=== PATIENT | female | born 1970 | race Caucasian/White ===

== ENCOUNTER 2017-03-26 18:08 | Observation (INO) ==
--- NOTE | 2017-03-26 18:22 | Emergency Department Note ---
Disposition Clinical Impression: Chest pain Qualifiers: Chest pain type: unspecified Qualified Code(s): R07.9 - Chest pain, unspecified Disposition: Admitted As Inpatient Condition: Good Referrals: Saran Sims MD [Primary Care Provider] - Forms: ED Satisfaction Letter Time of Disposition: 19:57 Chest Pain HPI - General Chief Complaint: ED Chest Pain Stated Complaint: CP Time Seen by Provider: 03/26/17 18:18 Source: patient Mode of arrival: ambulatory Limitations: no limitations Vital Signs Reviewed: Yes Nursing Notes Reviewed: Yes - History of Present Illness HPI Narrative: 46-year-old female who comes in complaining of a 2 to three-day history of chest pain she describes it as pressure-like pain in her chest she has radiation to her neck and shoulders. Patient has no history of heart disease no recent cardiac workup. Patient's had an ulcer before however she says this feels differently. Pt complaint: chest pain Onset (ago): day(s) Duration: intermittent (4) Onset: during rest Pain Location: substernal, left chest Severity: moderate Severity scale (1-10): 8 Quality: heaviness Pain Radiation: RUE, LUE, neck Improves with: nothing Worsens with: nothing Treatments prior to arrival chest pain: none - Related Data Previous Rx's Medication Instructions Recorded Ondansetron ODT [Zofran ODT] 4 mg SL Q4HR #10 tab.rapdis 01/26/15 Cyclobenzaprine [Flexeril] 10 mg PO HS #10 tablet 09/17/15 HYDROcodone/Acet 5/325 mg [[place] 1 tab PO Q6H PRN #10 tab 09/17/15 5-325 mg] Dicyclomine [Bentyl] 10 mg PO TID #30 capsule 08/18/16 Allergies Allergy/AdvReac Type Severity Reaction Status Date / Time ibuprofen Allergy Swelling Verified 10/10/14 16:49 of Lip/Tongue/Throat All systems ED: reviewed and negative except as stated. Constitutional: Denies: fever, chills, weakness, weight change Eyes: Denies: eye pain, eye discharge, vision change ENT ED: Denies: ear pain, throat pain, dental pain, hearing loss, epistaxis, congestion, dysphagia Cardiovascular: Reports: chest pain. Denies: palpitations, dyspnea on exertion , edema, syncope Respiratory: Denies: cough, dyspnea, wheezes, hemoptysis, stridor Gastrointestinal: Denies: abdominal pain, nausea, vomiting, diarrhea, constipation, hematemesis, melena, hematochezia Genitourinary: Denies: dysuria, frequency, hematuria, discharge Musculoskeletal: Denies: back pain, neck pain, arthralgia, myalgia Integumentary: Denies: rash, abrasion, lesions Neurological: Denies: headache, weakness, numbness, paresthesias, confusion, abnormal gait, vertigo Psychiatric: Denies: anxiety, depression, suicidal thoughts, homicidal thoughts , auditory hallucinations, visual hallucinations Endocrine: Denies: fatigue Hematological/Lymphatic: Denies: easy bleeding, easy bruising Allergic/Immunologic: Denies: facial swelling, urticaria Chest Pain PMH - Past Medical History Medical history: Reports: no medical history Reports: Peptic Ulcer Disease, Other (Anxiety) Surgical history: Reports: appendectomy Psychiatric history: Reports: anxiety [employer] history: Reports: no [employer]OR history - Social History Smoking Status: Never smoker Alcohol use: Reports: none Drug use: Reports: none Physical Exam - General Limitations: no limitations General appearance: alert, anxious - Head Head exam: atraumatic, normocephalic, normal inspection - Eye Eye exam: Present: normal appearance, PERRL, EOMI - ENT ENT exam: normal exam, normal oropharynx, mucous membranes moist - Neck Neck exam: Present: normal inspection, full ROM, trachea midline - Chest Chest inspection: Present: normal inspection, symmetric chest wall rise - Respiratory Respiratory exam: Present: normal lung sounds bilaterally - Cardiovascular Cardiovascular exam: Present: regular rate, normal rhythm, normal heart sounds - Abdominal Exam Abdominal exam: Present: soft, Non-Tender. Absent: tenderness, distention, guarding, rebound, rigidity - Extremities Exam Extremities exam: Present: normal inspection, full ROM. Absent: tenderness, pedal edema - Expanded Lower Extremity Exam Neurovascular/Tendon exam: Absent: motor deficit, sensory deficit, tendon deficit Gait: observed and normal - Back Exam Back exam: Present: normal inspection, full ROM. Absent: tenderness - Neurological Exam Neurological exam: Present: alert - Psychiatric Psychiatric exam: Present: normal affect, normal mood - Skin Skin exam: Present: warm, dry, intact, normal color Course - Reevaluation(s) Reevaluation #1: 46-year-old female with a couple risk factors comes in complaining of chest pain and pressure. Workup here in the emergency department is negative patient will be admitted to rule out. Time: 19:56 - Consultations Consultation #1: Discussed with , admit. Time: 20:24 Vital Signs Temperature 98.4 F 03/26/17 18:12 Pulse Rate 79 03/26/17 18:12 Respiratory Rate 20 03/26/17 18:12 Blood Pressure 153/93 03/26/17 18:12 O2 Sat by Pulse Oximetry 100 03/26/17 18:12 Temperature 98.4 F 03/26/17 18:12 Pulse Rate 89 03/26/17 20:14 Respiratory Rate 16 03/26/17 20:14 Blood Pressure 135/86 03/26/17 20:14 O2 Sat by Pulse Oximetry 97 03/26/17 20:14 Oxygen Delivery Oxygen Delivery Room Air Chest Pain - Lab Data Result diagrams: 03/26/17 19:18 03/26/17 19:18 Lab Results 03/26/17 03/26/17 03/26/17 Range/Units 19:18 19:18 19:18 WBC 8.2 (4.3-11.1) K/mcL RBC 4.83 (3.82-4.97) M/mcL Hgb 14.4 (11.5-15.4) g/dL Hct 42.6 (35.3-44.9) % MCV 88.2 (83.0-100.0) fL MCH 29.8 (28.0-33.3) pg MCHC 33.8 (31.6-35.5) g/dL RDW 11.9 (11.5-14.5) % Plt Count 320 (140-400) K/mcL MPV 10.3 (9.4-12.4) fL Immature Gran % 0.4 (0-4) % Seg Neutrophils % 61.9 % Lymphocytes % 28.2 % Monocytes % 6.7 % Eosinophils % 2.2 % Basophils % 0.6 % Neutrophils # 5.1 (1.6-8.9) K/mcL Lymphocytes # 2.3 (0.6-4.6) K/mcL Monocytes # 0.6 (0.0-1.3) K/mcL Eosinophils # 0.2 (0.0-0.6) K/mcL Basophils # 0.1 (0.0-0.2) K/mcL PT 10.9 (9.4-12.1) Seconds INR 1.0 APTT 30.7 (26.0-36.0) Seconds Sodium 137 (136-145) mEq/L Potassium 3.9 (3.5-5.1) mEq/L Chloride 105 (98-107) mEq/L Carbon Dioxide 26 (23-29) mEq/L BUN 15 (6-20) mg/dL Creatinine 0.78 (0.60-1.20) mg/dL Est GFR ( Amer) > 60 (> 60) Est GFR (Non-Af Amer) > 60 (> 60) BUN/Creatinine Ratio 19 (6-26) Glucose 92 (70-105) mg/dL Calculated Osmolality 284 (280-300) Calcium 9.4 (8.6-10.3) mg/dL Troponin I (< 0.04) ng/mL 03/26/17 Range/Units 19:18 WBC (4.3-11.1) K/mcL RBC (3.82-4.97) M/mcL Hgb (11.5-15.4) g/dL Hct (35.3-44.9) % MCV (83.0-100.0) fL MCH (28.0-33.3) pg MCHC (31.6-35.5) g/dL RDW (11.5-14.5) % Plt Count (140-400) K/mcL MPV (9.4-12.4) fL Immature Gran % (0-4) % Seg Neutrophils % % Lymphocytes % % Monocytes % % Eosinophils % % Basophils % % Neutrophils # (1.6-8.9) K/mcL Lymphocytes # (0.6-4.6) K/mcL Monocytes # (0.0-1.3) K/mcL Eosinophils # (0.0-0.6) K/mcL Basophils # (0.0-0.2) K/mcL PT (9.4-12.1) Seconds INR APTT (26.0-36.0) Seconds Sodium (136-145) mEq/L Potassium (3.5-5.1) mEq/L Chloride (98-107) mEq/L Carbon Dioxide (23-29) mEq/L BUN (6-20) mg/dL Creatinine (0.60-1.20) mg/dL Est GFR ( Amer) (> 60) Est GFR (Non-Af Amer) (> 60) BUN/Creatinine Ratio (6-26) Glucose (70-105) mg/dL Calculated Osmolality (280-300) Calcium (8.6-10.3) mg/dL Troponin I < 0.03 (< 0.04) ng/mL - EKG Data EKG attestation: Yes I reviewed and interpreted this EKG. EKG shows normal: sinus rhythm Rate: normal Rhythm: NSR Interpretation: no acute changes Heart Score - Score History: Moderately Suspicious EKG: Normal Age: 45-65 Risk Factors: 1-2 risk factors Troponin: Less than normal limit HEART Score Total: 3
[2017-03-26 19:24] LABS: Basophils # 0.1 K/mcL (0.0-0.2); Basophils % 0.6 %; Eosinophils # 0.2 K/mcL (0.0-0.6); Eosinophils % 2.2 %; Hematocrit 42.6 % (35.3-44.9); Hemoglobin 14.4 g/dL (11.5-15.4); Immature Granulocytes % 0.4 % (0-4); Lymphocytes # 2.3 K/mcL (0.6-4.6); Lymphocytes % 28.2 %; Mean Corpuscular HGB Conc 33.8 g/dL (31.6-35.5); Mean Corpuscular Hemoglobin 29.8 pg (28.0-33.3); Mean Corpuscular Volume 88.2 fL (83.0-100.0); Mean Platelet Volume 10.3 fL (9.4-12.4); Monocytes # 0.6 K/mcL (0.0-1.3); Monocytes % 6.7 %; Neutrophils # 5.1 K/mcL (1.6-8.9); Platelet Count 320 K/mcL (140-400); Red Blood Count 4.83 M/mcL (3.82-4.97); Red Cell Distribution Width 11.9 % (11.5-14.5); Segmented Neutrophils % 61.9 %
[2017-03-26 19:30] LABS: Prothrombin Time 10.9 Seconds (9.4-12.1)
[2017-03-26 19:33] LABS: Activated Partial Thrombo Time 30.7 Seconds (26.0-36.0)
[2017-03-26 19:44] LABS: BUN/Creatinine Ratio 19 (6-26); Blood Urea Nitrogen 15 mg/dL (6-20); Calcium 9.4 mg/dL (8.6-10.3); Carbon Dioxide 26 mEq/L (23-29); Chloride 105 mEq/L (98-107); Glucose 92 mg/dL (70-105); Osmolality,Calculated 284 (280-300); Potassium 3.9 mEq/L (3.5-5.1); Sodium 137 mEq/L (136-145); eGFR For African Americans > 60 (> 60); eGFR For Non-African Americans > 60 (> 60)
[2017-03-26] MEDS ORDERED: *HR* Promethazine 25 MG/ML VIAL IVP PRN (22:38)
[2017-03-26] MEDS ORDERED: Naloxone 0.4 MG/ML INJ IVP PRN (22:38)
[2017-03-26] MEDS ORDERED: *HR* HYDROcodone/Acet 5/325 mg TABLET PO PRN (22:38)
[2017-03-26] MEDS ORDERED: Acetaminophen 325 MG TABLET PO PRN (22:38)
[2017-03-26] MEDS ORDERED: Ondansetron 4 MG/2 ML VIAL IVP PRN (22:38)
--- NOTE | 2017-03-26 22:49 | Internal Med History&Physical ---
Date of Encounter: 03/26/17 Time of Encounter: 20:10 Assessment and Plan (1) Chest pain Current visit: Yes Status: Acute Will the pt into tele for observation Reviewed EKG - NSR, NO acute ischemic changes So far negative trop will trend on trop started her on ASA 81mg Nitro PRN for chest pain will get exercise stress test in AM check FLP in AM Qualifiers: Chest pain type: unspecified Qualified Code(s): R07.9 - Chest pain, unspecified (2) PUD (peptic ulcer disease) Current visit: Yes Status: Acute Her CP also looks more like PUD / Gastritis related too placed her on PPI BID Internal Medicine - H&P: HPI Chief complaint: Chest pressure Admitted From: Emergency Dept Plans for Post Hospital Care: Home History of present illness: Ms. Pritchard is a 46 year old female known PUD and IBS, who presented to ER with intermittent chest pressure from last 3 days. As per pt she does have 6/10 chest pressure located substernally, radiating to her neck, last for few minutes. She was at restaurant this evening with her for their anniversary, she was not able to eat, felt severe chest pressure. She denied any vomiting. Denied any SOB. Past Med Surg Social Fam HX - Past Medical History Medical history: no medical history Psychiatric history: anxiety - Past Surgical History Surgical History: appendectomy - Social History Smoking Status: Never smoker Alcohol use: none Drug use: none - Family History Mother Hx Family Cardiac Disorders: Yes (HTN) - Additional Family History Additional family history: Reviewed, denied any Heart problems in the family Internal Medicine - H&P: Meds Ondansetron ODT [Zofran ODT] 4 mg SL Q4HR #10 tab.rapdis 01/26/15 [Rx] Cyclobenzaprine [Flexeril] 10 mg PO HS #10 tablet 09/17/15 [Rx] HYDROcodone/Acet 5/325 mg [[place] 5-325 mg] 1 tab PO Q6H PRN #10 tab 09/17/15 [Rx ] Dicyclomine [Bentyl] 10 mg PO TID #30 capsule 08/18/16 [Rx] 3 Allergy/AdvReac Type Severity Reaction Status Date / Time ibuprofen Allergy Swelling Verified 10/10/14 16:49 of Lip/Tongue/Throat All Systems PM: A 10-system review of systems was performed and is negative for pertinent findings except as documented above in the HPI. Review of systems: Reviewed all the systems, everything is benign except the systems and symptoms I mentioned in HPI - Constitutional Vitals: Temp Pulse Resp BP Pulse Ox 98.4 F 98 16 145/94 98 03/26/17 18:12 03/26/17 21:00 03/26/17 21:46 03/26/17 21:46 03/26/17 21:00 General appearance: Present: cooperative, A&O X 3, answers questions appropriately - Head Head exam: Present: atraumatic, normal inspection - Neck Neck exam general surgery: Present: supple - Respiratory Respiratory exam: Present: decreased breath sounds. Absent: rales, respiratory distress, rhonchi, wheezes - Cardiovascular Cardiovascular exam: Present: RRR, +S1, +S2. Absent: tachycardia - GI/Abdominal GI/Abdominal exam: Present: normal bowel sounds, soft. Absent: rebound, rigid, tenderness - Extremities Exam Extremities exam: Absent: calf tenderness, pedal edema, tenderness - Back Exam Back exam: Absent: CVA tenderness (L), CVA tenderness (R) - Neurological Exam Neurological exam: Present: alert, oriented X3 - Psychiatric Psychiatric exam: Present: normal affect, normal mood Internal Med - H&P Results - Labs CBC & Chem 7: 03/26/17 19:18 03/26/17 19:18
[2017-03-27 06:40] LABS: Chol/HDL Ratio 5.1 (0-4.9)
[2017-03-27] MEDS ORDERED: Aspirin Enteric Coated 81 MG Tablet PO SCH (09:00)
--- NOTE | 2017-03-27 11:28 | Discharge Summary ---
Date of Encounter: 03/27/17 Time of Encounter: 11:25 - Discharge Diagnosis (1) Chest pain Priority: Primary Status: Acute Comments: with chest pressure that started 3 days prior to presentation. No known CAD, no previous ischemic bowel. CXR non-acute. Serial troponins negative, EKG without acute ST changes. Plan was for inpatient stress test however patient did not want to stay. She completed first part of stress test on 03/27/17. Plan for her to return to complete second part of stress test on 03/28/17 at 09 100. Patient advised to return to the emergency room if chest pain/pressure or shortness of breath recurred. Continue ASA. Qualifiers: Chest pain type: unspecified Qualified Code(s): R07.9 - Chest pain, unspecified (2) Hyperlipidemia Priority: Primary Status: Acute Comments: LDL 142; statin initiated. Qualifiers: Hyperlipidemia type: pure hypercholesterolemia Qualified Code(s): E78.00 - Pure hypercholesterolemia, unspecified; E78.0 - Pure hypercholesterolemia (3) PUD (peptic ulcer disease) Priority: Primary Status: Acute Comments: suspect possible PUD/Gastritis could have contributed to chest pressure. Discharge home on PPI. Recommend follow-up with PCP within 1-2 weeks. - Discharge Medications Prescriptions: Aspirin Enteric Coated [Aspirin EC] 81 mg PO DAILY #30 tablet. Atorvastatin Calcium [Lipitor] 20 mg PO HS #30 tablet Omeprazole [PriLOSEC] 20 mg PO BIDAC #60 capsule. Home Medications: Aspirin Enteric Coated [Aspirin EC] 81 mg PO DAILY #30 tablet. 03/27/17 [Rx] Atorvastatin Calcium [Lipitor] 20 mg PO HS #30 tablet 03/27/17 [Rx] Omeprazole [PriLOSEC] 20 mg PO BIDAC #60 capsule. 03/27/17 [Rx] Allergies/Adverse Reactions: 3 Allergy/AdvReac Type Severity Reaction Status Date / Time ibuprofen Allergy Swelling Verified 10/10/14 16:49 of Lip/Tongue/Throat Procedures/tests Complete & Pending: Procedures Performed prior 72 hours Category Date Time Status NM sundar perf SPECT multi [NM] Routine Exams 03/26/17 22:43 Taken SP exercise nuclear stress Routine Y 03/27/17 08:15 Completed Date of admission: 03/26/17 21:28 Primary care physician: Saran Sims MD Discharging clinician: Rachel Kimball Anticipated date of discharge: 03/27/17 - Patient Status Disposition: Home, Self-Care Condition: Good Functional capacity at discharge: independent ambulation Overall status at discharge: patient is back to baseline - Discharge Instructions Instructions: Peptic Ulcer (DC), Omeprazole (By mouth), Aspirin (By mouth), Atorvastatin (By mouth), Cardiac Stress Test (DC), Hyperlipidemia (DC) Follow Up With: Saran Sims MD [Primary Care Provider] - Additional Instructions: Stress part II appointment: 03/28/2017 at 9:00AM. You will need to enter from the [facility] Entrance and follow through to Cardiopulmonary desk. NOTE: Do NOT have any caffeine and/or nicotine after 5:00AM. - Diet and Activity Activity: increase activity as tolerated Diet: low fat, low cholesterol Interval History: Seen and examined at bedside. Patient is new to me, information obtained from chart review and patient report. Patient says she feels better and would actually like to go home today. She only completed the first part of her stress test. Discussed with cardiology and lyndsey to discharge home and she will return tomorrow morning at 0900 to complete second part of stress. Patient advised to return to emergency room if chest pain/pressure recurs. Patient and both verbalize understanding. Hospital course: See assessment and plan for hospital course - Time Spent with Patient Total time spent providing and/or coordinating discharge services: - Constitutional Vitals: Temp Pulse Resp BP Pulse Ox 98.1 F 88 14 114/73 95 03/27/17 03:55 03/27/17 03:55 03/27/17 03:55 03/27/17 03:55 03/27/17 03:55 General appearance: Present: cooperative, A&O X 3, answers questions appropriately - Head Head exam: Present: atraumatic, normocephalic - Eye Eye exam: Present: PERRL, conjuntiva pink, sclera anicteric Pupils: Present: PERRL - Neck Neck exam general surgery: Present: supple, trachea midline. Absent: lymphadenopathy - Respiratory Respiratory exam: Present: CTAB. Absent: accessory muscle use, rales, rhonchi, wheezes - Cardiovascular Cardiovascular exam: Present: RRR, +S1, +S2. Absent: diastolic murmur, gallop, rubs, systolic murmur - GI/Abdominal GI/Abdominal exam: Present: normal bowel sounds, soft, no peritoneal signs. Absent: distended, tenderness - Extremities Exam Extremities exam: Present: warm, radial pulses palpable and symmetrical. Absent : calf tenderness, cyanotic, pedal edema - Neurological Exam Neurological exam: Present: CN II-XII intact, oriented X3, no focal deficits. Absent: pronater drift, facial droop, speech deficit - Skin Skin exam: Present: dry, intact
[2017-03-27 11:34] VITALS: BP 110/60
--- NOTE | 2017-03-27 17:43 | Electrocardiograph Report ---
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
== END 2017-03-27 12:14 | disposition home or self-care (01) ==
LOC: 3BNU 18:08 → EMEROO 18:08 → 3BNU 22:00
PROVIDERS: ADMIT Family Medicine; ATTEND Registered Nurse